=== PATIENT | female | born 1950 | race African-American/Black ===

== ENCOUNTER → 2016-05-30 | Outpatient (CLI) | payer OTHER ==
--- NOTE | ~2016-05-30 | EKG ---
[address] [address] ELECTROCARDIOGRAM REPORT Name: BERT ESCOBEDO Room #: [facility] Veronica#: [id number] Admission: 05/30/16 Attend Phys: Daria Peterson DPM Discharge: Date of : 48 Report #: [id number] THIS REPORT FOR: //name// [facility] Test Date: 2016-05-30 Test Time: 11:33:02 Pat Name: BERT ESCOBEDO Department: Room: Gender: F Medical Doctor Md/Medical Director: Judie SHELDON : 1950 Requested By: Daria Peterson Order Number: [id number] MD: Lenin Azar Measurements Intervals [place] Rate: 64 P: 19 VT: 188 QRS: 33 QRSD: 100 T: 56 QT: 414 QTc: 427 Interpretive Statements Sinus rhythm No significant abnormality No previous ECG available for comparison Electronically Signed On 05-31-2016 7:51:10 FLAVORER by Lenin Azar [email or web address] <ELECTRONICALLY SIGNED> By: Lenin Azar MD, [facility] 05/31/16 [id number] Lenin Azar MD, FACC /EPI
== END ==
LOC: CV 11:05
DX: Z01.810 Encounter for preprocedural cardiovascular examination (principal)